=== PATIENT | female | born 1945 | race Caucasian/White ===

== ENCOUNTER 2019-06-10 08:32 | Emergency (ER) | payer MEDICARE, SELFPAY ==
[2019-06-10 08:46] VITALS: BP 125/54; PULSE 73; RESP 20; TEMP 37.1; O2SAT 96
--- NOTE | 2019-06-10 09:10 | ED.EYEPROB ---
HPI - Eye Problem General Chief complaint: Eye Problems Stated complaint: left eye swollen and red Time Seen by Provider: 06/10/19 09:00 Source: patient, RN notes reviewed and old records reviewed Mode of arrival: ambulatory Limitations: no limitations History of Present Illness HPI Narrative: Patient presents today complaining of redness and swelling around her left eye x2 days. Reports symptoms are better today than they were yesterday. She does report some intermittent itching, but denies pain. Denies foreign body sensation, photophobia, or drainage. Patient has been applying a cold rag, but no other [id number] interventions. 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 She was told previously that she had cellulitis. Related Data Home Medications Medication Instructions Recorded Confirmed losartan 100 mg PO DAILY 02/24/19 06/10/19 rosuvastatin 10 mg PO DAILY 02/24/19 06/10/19 Allergies Allergy/AdvReac Type Severity Reaction Status Date / Time No Known Allergies Allergy Verified 02/24/19 08:28 Review of Systems Review of Systems: Narrative: CONSTITUTIONAL: Denies body aches, fever, chills, or sweats. EYES: Denies visual changes, redness, or discharge.Swelling and redness surrounding the left eye ENT: Denies rhinorrhea, congestion, sore throat, or otalgia. CARDIOVASCULAR: Denies chest pain, palpitations, or edema. RESPIRATORY: Denies cough or dyspnea. GASTROINTESTINAL: Denies abdominal pain, nausea, vomiting, or diarrhea. GENITOURINARY: Denies dysuria or hematuria. SKIN: Denies rash, itching, or wounds. MUSCULOSKELETAL: Denies back pain, joint pain, or myalgia. NEUROLOGIC: Denies headache, numbness, tingling, or weakness. PSYCH: Denies depression or anxiety. [facility] Past Medical History Medical History (Updated 06/10/19 @ 09:21 by Jovanna Archer, [facility], ) Hyperlipidemia Hypertension Surgical History Surgical History (Updated 02/25/19 @ 19:13 by Xiomara Mackenzie, [facility]) H/O cataract removal with insertion of prosthetic lens H/O: hysterectomy History of ear surgery Social History Social History (Updated 02/24/19 @ 08:58 by Xiomara Mackenzie NP) Smoking status: Never smoker Gender identity (if verbalized by the patient): Female Comments At time of signature, I have reviewed and agree with nursing past medical, surgical, social and family history unless otherwise noted. Please see nursing chart for further information. There is no relevant family history pertinent to the presenting complaint Exam Narrative: Exam Narrative: GENERAL: Well-appearing, well-nourished, and in no acute distress. HEAD: Normocephalic, atraumatic. EYES: EOMI. PERRL. No redness or drainage. Conjunctivae normal Bilaterally. Very mild edema and moderate dependent edema of the left upper and lower eyelids consistent with allergic reaction. No induration or abscess noted. ENT: Mucous membranes pink and moist. NECK: Normal AROM. Supple. No lymphadenopathy. CHEST: No respiratory distress. EXTREMITIES: Normal range of motion. No edema. SKIN: Warm, dry, no rash. Capillary refill normal. Normal skin turgor. NEURO: No focal deficits. Alert and oriented x3. Gait steady. PSYCH: Normal affect. No signs of depression or anxiety. Course Vital Signs Vital signs: Vital Signs Temperature 98.8 F 06/10/19 08:46 Pulse Rate 73 06/10/19 08:46 Respiratory Rate 20 06/10/19 08:46 Blood Pressure 125/54 L 06/10/19 08:46 Pulse Oximetry 96 06/10/19 08:46 Temperature 98.8 F 06/10/19 08:46 Pulse Rate 73 06/10/19 08:46 Respiratory Rate 20 06/10/19 08:46 Blood Pressure 125/54 L 06/10/19 08:46 Pulse Oximetry 96 06/10/19 08:46 Reviewed. Pt has been instructed to follow up with her PCP regarding her elevated blood pressure today. Procedures Other Pro
== END 2019-06-10 09:30 | disposition home or self-care (01) ==
PROVIDERS: Emergency Provider Nurse Practitioner; PCP Family Medicine
DX: L30.8 Other specified dermatitis (principal); E78.5 Hyperlipidemia, unspecified; I10 Essential (primary) hypertension
CPT/HCPCS: 65205; 99213; A9270; G0463

== ENCOUNTER 2020-07-31 08:59 | Emergency (ER) | payer MEDICARE, SELFPAY ==
[2020-07-31 09:08] VITALS: BP 126/63; PULSE 88; RESP 16; TEMP 37.3; O2SAT 99
--- NOTE | 2020-07-31 09:14 | ED.SKABFB ---
HPI - Skin/Abscess/Foreign Bdy General Chief complaint: Skin/Abscess/Foreign Body Stated complaint: Swelling, Peeling to left side of Face Time Seen by Provider: 07/31/20 09:09 Source: patient and RN notes reviewed History of Present Illness HPI narrative: Patient is a 74-year-old female who presents the urgent care with complaints of a sore to the left side of her face. Patient states is been there for years and started as just a small brown dot. Patient states she has had no issues with it in the past however over the last couple days it has opened and started to drain with surrounding swelling and pain. Patient states that she has been putting a antibiotic ointment on it for the last couple days. Denies of any fever, chills, nausea, vomiting. No other acute complaints. No acute distress noted. Patient aware of the plan of care. Some parts of this dictation were generated by voice recognition software and may contain typographical and/or grammatical inaccuracies. Related Data Home Medications Medication Instructions Recorded Confirmed losartan 100 mg PO DAILY 02/24/19 07/31/20 rosuvastatin 10 mg PO DAILY 02/24/19 07/31/20 omeprazole 20 mg PO DAILY 07/31/20 07/31/20 Allergies Allergy/AdvReac Type Severity Reaction Status Date / Time No Known Allergies Allergy Verified 07/31/20 09:05 Review of Systems Review of Systems: Narrative: CONSTITUTIONAL: Denies fever, chills, or sweats. EYES: Denies visual changes, redness, or discharge. ENT: Denies rhinorrhea, congestion, sore throat, or otalgia. CARDIOVASCULAR: Denies chest pain, palpitations, or edema. RESPIRATORY: Denies cough or dyspnea. GASTROINTESTINAL: Denies abdominal pain, nausea, vomiting, or diarrhea. GENITOURINARY: Denies dysuria or hematuria. SKIN: Reports of a sore to the left side of the face MUSCULOSKELETAL: Denies back pain, joint pain, or myalgia. NEUROLOGIC: Denies headache, numbness, or weakness. All other systems reviewed are negative, except as documented in HPI. [facility] Past Medical History Medical History (Updated 07/31/20 @ 09:18 by ALBINO Cronin) Hyperlipidemia Hypertension Surgical History Surgical History (Updated 02/25/19 @ 19:13 by Xiomara Mackenzie NP) H/O cataract removal with insertion of prosthetic lens H/O: hysterectomy History of ear surgery Social History Social History (Updated 02/24/19 @ 08:58 by Xiomara Mackenzie NP) Smoking status: Never smoker Gender identity (if verbalized by the patient): Female Comments At the time of my signature, I reviewed and agree with the nursing past medical, surgical, social, and family history. There is no relevant family history pertinent to the patient complaint. Exam Narrative: Exam Narrative: GENERAL: This is a well-nourished, well-developed patient, in no apparent distress. HEAD: normocephalic, atraumatic. EYES: PERRL. Sclera clear/white. Vision is grossly intact. EARS: External ears normal NOSE: External nose normal with no obvious nasal discharge, nares without redness, no rhinorrhea. THROAT: Mucous membranes moist NECK: Neck supple CARDIOVASCULAR: Regular rate and rhythm without murmurs, gallops, or rubs. RESPIRATORY: Clear to auscultation. Breath sounds equal bilaterally. No wheezes, rales, or rhonchi. SKIN: 3 x 4 cm area of swelling and erythema and mild edema surrounding a 0.25 superficial open sore to the left upper cheek with mild tenderness and scant drainage NEURO: awake, alert, and oriented to person, place and time. There were no obvious focal neurologic abnormalities. EXTREMITIES: No clubbing, cyanosis, or edema. Course Vital Signs Vital signs: Vital Signs Temperature 99.2 F 07/31/20 09:08 Pulse Rate 88 07/31/20 09:08 Respiratory Rate 16 07/31/20 09:08 Blood Pressure 126/63 07/31/20 09:08 Pulse Oximetry 99 07/31/20 09:08 Temperature 99.2 F 07/31/20 09:08 Pulse Rate 88 07/31/20 09:08 Respiratory Rate 16 07/31/20
== END 2020-07-31 09:24 | disposition home or self-care (01) ==
PROVIDERS: Emergency Provider Nurse Practitioner Family; PCP Internal Medicine
DX: L01.00 Impetigo, unspecified (principal); E78.5 Hyperlipidemia, unspecified; I10 Essential (primary) hypertension; E78.00 Pure hypercholesterolemia, unspecified; K21.9 Gastro-esophageal reflux disease without esophagitis
CPT/HCPCS: 99213; G0463

== ENCOUNTER 2020-09-09 08:19 | Emergency (ER) | payer MEDICARE, SELFPAY ==
[2020-09-09 08:25] VITALS: BP 144/105; PULSE 86; RESP 16; TEMP 37.1; O2SAT 99
[2020-09-09 08:33] VITALS: BP 144/105; PULSE 86; RESP 16; TEMP 37.1; O2SAT 99
--- NOTE | 2020-09-09 08:41 | ED.SKABFB ---
HPI - Skin/Abscess/Foreign Bdy General Chief complaint: Skin/Abscess/Foreign Body Stated complaint: spot on face Source: patient and RN notes reviewed Limitations: no limitations History of Present Illness HPI narrative: The patient, who is on several routine meds, presents with recurrent skin eruption. Patient states she was treated for facial impetigo over a month ago with doxycycline and Bactroban. She had improvement of a left maxillary lesion; she now has almost a week history of infranasal skin eruption preceded by a similar eruption on her right cheek. No fever, spontaneous discharge, streaking, induration/abscess. Symptoms are mild unrelieved with topical creams. Related Data Home Medications Medication Instructions Recorded Confirmed losartan 100 mg PO DAILY 02/24/19 09/09/20 rosuvastatin 10 mg PO DAILY 02/24/19 09/09/20 omeprazole 20 mg PO DAILY 07/31/20 09/09/20 Allergies Allergy/AdvReac Type Severity Reaction Status Date / Time No Known Allergies Allergy Verified 09/09/20 08:33 Review of Systems Review of Systems: Narrative: General/Constitutional: No weight loss,fever Eyes: N0: Redness,discharge Ears/Nose/Throat: No: Epistaxis,ear discharge Respiratory: Denies: Hemoptysis Gastrointestinal: No Vomiting, Bleeding-rectal Skin: No Lumps, REPORTS eruption Neurologic: No Focal Weakness,Sz Hematologic: Denies: Petechiae/Purpura Psychiatric: No: Suicida ideationl All Other Systems: Reviewed and Negative PMFSH Past Medical History Medical History (Updated 09/09/20 @ 08:47 by Mich Pierson MD) Hyperlipidemia Hypertension Surgical History Surgical History (Updated 02/25/19 @ 19:13 by Xiomara Mackenzie NP) H/O cataract removal with insertion of prosthetic lens H/O: hysterectomy History of ear surgery Social History Social History (Updated 02/24/19 @ 08:58 by Xiomara Mackenzie NP) Smoking status: Never smoker Gender identity (if verbalized by the patient): Female Comments At time of signature, agree with nursing past medical, surgical, social and family history. There is no relevant family history pertinent to the presenting complaint Exam Narrative: Exam Narrative: General Appearance: Well nourished Head: Normocephalic Eye: PERRLA, Conjunctiva clear Ear: External ear normal Nose: Normal nose, Nare clear Mouth/Throat: Normal appearing Neck Exam: Supple Respiratory: Airway patent, No respiratory distress Musculoskeletal: Moves all extremities, Non tender Skin: Warm, Dry ; impetiginous eruption below nose and right cheek/maxilla, no abscess/fluctuance/induration/streaking Neurological: A&O x3 Psychiatric: Normal mood, Normal affect Course Vital Signs Vital signs: Vital Signs Temperature 98.8 F 09/09/20 08:25 Pulse Rate 86 09/09/20 08:25 Respiratory Rate 16 09/09/20 08:25 Blood Pressure 144/105 H 09/09/20 08:25 Pulse Oximetry 99 09/09/20 08:25 Temperature 98.8 F 09/09/20 08:33 Pulse Rate 86 09/09/20 08:33 Respiratory Rate 16 09/09/20 08:33 Blood Pressure 144/105 H 09/09/20 08:33 Pulse Oximetry 99 09/09/20 08:33 Discharge Plan Discharge Clinical Impression: Folliculitis Patient Disposition: Home, Self-Care Condition: Stable Instructions: Antibiotic Form, Folliculitis (ED) Additional Instructions: Take clindamycin with food, probiotics or antacid; stop if diarrhea occurs Keeping photo log of area Prescriptions: New clindamycin HCl 300 mg capsule 300 mg PO TID Qty: 21 RF: 0 mupirocin 2 % ointment 1 applic TOPICAL TID Qty: 30 RF: 0 No Action losartan 100 mg Tablet 100 mg PO DAILY RF: 0 rosuvastatin 10 mg Tablet 10 mg PO DAILY RF: 0 omeprazole 20 mg capsule,delayed release(DR/EC) 20 mg PO DAILY RF: 0 Follow-up/Referrals: Sudhir,Jamarcus Miller MD [Primary Care Provider] -
== END 2020-09-09 09:02 | disposition home or self-care (01) ==
PROVIDERS: Emergency Provider Emergency Medicine; PCP Internal Medicine
DX: L73.9 Follicular disorder, unspecified (principal); E78.5 Hyperlipidemia, unspecified; I10 Essential (primary) hypertension; Z98.49 Cataract extraction status, unspecified eye; Z96.1 Presence of intraocular lens
CPT/HCPCS: 99213; G0463

== ENCOUNTER 2020-09-24 10:04 | Emergency (ER) | payer MEDICARE, SELFPAY ==
[2020-09-24 10:10] VITALS: BP 122/54; PULSE 69; RESP 18; TEMP 37; O2SAT 98
--- NOTE | 2020-09-24 11:10 | ED.SKABFB ---
HPI - Skin/Abscess/Foreign Bdy General Chief complaint: Skin/Abscess/Foreign Body Stated complaint: face broke out Source: patient and RN notes reviewed Mode of arrival: ambulatory Limitations: no limitations History of Present Illness HPI narrative: 74-year-old female who presents to [facility] with complaints of rash now above her lip, she was here previously for rash to the same area and was treated with clindamycin oral antibiotic and topical Bactroban ointment which cleared up rash. Patient states that rash showed up yesterday above her lip is crusty with some yellowish drainage and is itchy, has applied some of the Bactroban ointment to rash. Patient denies anyone else in family having rash or any other areas on body of this rash.Patient denies any fevers, chills, or sweats. MD complaint: rash Related Data Home Medications Medication Instructions Recorded Confirmed losartan 100 mg PO DAILY 02/24/19 09/24/20 rosuvastatin 10 mg PO DAILY 02/24/19 09/24/20 omeprazole 20 mg PO DAILY 07/31/20 09/24/20 Allergies Allergy/AdvReac Type Severity Reaction Status Date / Time No Known Allergies Allergy Verified 09/24/20 10:59 Review of Systems Review of Systems: CONSTITUTIONAL: Denies fever, chills, or sweats. EYES: Denies visual changes, redness, or discharge. ENT: Denies rhinorrhea, congestion, sore throat, or otalgia. CARDIOVASCULAR: Denies chest pain, palpitations, or edema. RESPIRATORY: Denies cough or dyspnea. GASTROINTESTINAL: Denies abdominal pain, nausea, vomiting, or diarrhea. GENITOURINARY: Denies dysuria or hematuria. SKIN:Positive for rash above lip with crusting appearance and mild itch. MUSCULOSKELETAL: Denies back pain, joint pain, or myalgia. NEUROLOGIC: Denies headache, numbness, or weakness. PSYCHIATRIC: Denies anxiety or depression. All systems reviewed & are unremarkable except as noted in HPI and below [facility] Past Medical History Medical History (Updated 09/28/20 @ 14:49 by Xiomara Mackenzie NP) GERD (gastroesophageal reflux disease) Hyperlipidemia Hypertension Surgical History Surgical History (Updated 09/28/20 @ 14:46 by Xiomara Mackenzie NP) H/O cataract removal with insertion of prosthetic lens H/O: hysterectomy History of ear surgery Hx of tubal ligation Family History Family History (Updated 09/24/20 @ 11:24 by Xiomara Mackenzie NP) Sibling Cancer of lung Other Breast cancer Hypertension Social History Social History (Updated 09/28/20 @ 14:46 by Xiomara Mackenzie NP) Smoking status: Former smoker Tobacco type: cigarettes Additional smoking assessment comments: quit 30 years ago Alcohol intake: never Substance use: never Living arrangements: with family Occupation/Education: retired Gender identity (if verbalized by the patient): Female Comments At time of signature, agree with nursing past medical, surgical, social and family history. There is no relevant family history pertinent to the presenting complaint Exam Narrative: GENERAL: Well-appearing, well-nourished, and in no acute distress. HEAD: Normocephalic, atraumatic. EYES: PERRLA and EOMI. ENT: Nares clear, no rhinorrhea or epistaxis. Mucous membranes moist. NECK: Supple. No lymphadenopathy CHEST: Clear to auscultation. No respiratory distress. SaO2 98% on room air HEART: Regular rate and rhythm. No murmur heard. Normal peripheral pulses. ABDOMEN: Soft, nontender, nondistended, normal active bowel sounds. EXTREMITIES: Normal range of motion. No edema. SKIN: Warm, dry, red with crusting rash above lip, yellowish discharge noted, stated some itch to area, denies any other sites of rash or anyone else in family with similar rash. NEURO: No focal deficits. Alert and oriented x3. Course Vital Signs Vital signs: Vital Signs Temperature 37.0 C 09/24/20 10:10 Pulse Rate 69 09/24/20 10:10 Respiratory Rate 18 09/24/20 10:10 Blood Pressure 122/54 L 09/24/20 10:10 Pulse Oximetry 98
== END 2020-09-24 11:30 | disposition home or self-care (01) ==
PROVIDERS: Emergency Provider Registered Nurse; PCP Internal Medicine
DX: L01.00 Impetigo, unspecified (principal); K21.9 Gastro-esophageal reflux disease without esophagitis; E78.5 Hyperlipidemia, unspecified; I10 Essential (primary) hypertension; Z87.891 Personal history of nicotine dependence
CPT/HCPCS: 99213; G0463

== ENCOUNTER 2020-10-18 09:13 | Emergency (ER) | payer MEDICARE, SELFPAY ==
--- NOTE | 2020-10-18 09:19 | ED.SKABFB ---
HPI - Skin/Abscess/Foreign Bdy General Chief complaint: Skin/Abscess/Foreign Body Stated complaint: Rash on Chest and Neck Time Seen by Provider: 10/18/20 09:19 Source: patient and RN notes reviewed History of Present Illness HPI narrative: Patient is a 74-year-old female who presents the urgent care with complaints of an itchy inflamed rash to the neck and chest. Patient states that she started noticing it after having sticky pads placed on her chest at the hospital for an outpatient test . Patient states that it cleared up slightly and she was seen a automotive title clerk for a facial rash. Patient states that her automotive title clerk placed her on doxycycline and clindamycin cream which have not improved the rash to the chest. Patient states she has been taking Benadryl with mild improvement. No other acute complaints. No acute distress noted. Patient read the plan of care. Some parts of this dictation were generated by voice recognition software and may contain typographical and/or grammatical inaccuracies. Related Data Home Medications Medication Instructions Recorded Confirmed losartan 100 mg PO DAILY 02/24/19 10/18/20 rosuvastatin 10 mg PO DAILY 02/24/19 10/18/20 omeprazole 20 mg PO DAILY 07/31/20 10/18/20 Allergies Allergy/AdvReac Type Severity Reaction Status Date / Time No Known Allergies Allergy Verified 10/18/20 09:31 Review of Systems Review of Systems: CONSTITUTIONAL: Denies fever, chills, or sweats. EYES: Denies visual changes, redness, or discharge. ENT: Denies rhinorrhea, congestion, sore throat, or otalgia. CARDIOVASCULAR: Denies chest pain, palpitations, or edema. RESPIRATORY: Denies cough or dyspnea. GASTROINTESTINAL: Denies abdominal pain, nausea, vomiting, or diarrhea. GENITOURINARY: Denies dysuria or hematuria. SKIN: Reports of a rash to the chest and neck MUSCULOSKELETAL: Denies back pain, joint pain, or myalgia. NEUROLOGIC: Denies headache, numbness, or weakness. All other systems reviewed are negative, except as documented in HPI. [facility] Past Medical History Medical History (Updated 10/18/20 @ 09:30 by ALBINO Cronin) GERD (gastroesophageal reflux disease) Hyperlipidemia Hypertension Surgical History Surgical History (Updated 09/28/20 @ 14:46 by Xiomara Mackenzie NP) H/O cataract removal with insertion of prosthetic lens H/O: hysterectomy History of ear surgery Hx of tubal ligation Family History Family History (Updated 09/24/20 @ 11:24 by Xiomara Mackenzie NP) Sibling Cancer of lung Other Breast cancer Hypertension Social History Social History (Updated 09/28/20 @ 14:46 by Xiomara Mackenzie NP) Smoking status: Former smoker Tobacco type: cigarettes Additional smoking assessment comments: quit 30 years ago Alcohol intake: never Substance use: never Gender identity (if verbalized by the patient): Female Comments At the time of my signature, I reviewed and agree with the nursing past medical, surgical, social, and family history. There is no relevant family history pertinent to the patient complaint. Exam Narrative: GENERAL: This is a well-nourished, well-developed patient, in no apparent distress. HEAD: normocephalic, atraumatic. EYES: PERRL. Sclera clear/white. Vision is grossly intact. EARS: External ears normal NOSE: External nose normal with no obvious nasal discharge, nares without redness, no rhinorrhea. THROAT: Mucous membranes moist NECK: Neck supple CARDIOVASCULAR: Regular rate and rhythm without murmurs, gallops, or rubs. RESPIRATORY: Clear to auscultation. Breath sounds equal bilaterally. No wheezes, rales, or rhonchi. SKIN: Pruritic raised erythemic dermatitis to the chest and neck NEURO: awake, alert, and oriented to person, place and time. There were no obvious focal neurologic abnormalities. EXTREMITIES: No clubbing, cyanosis, or edema. Course Vital Signs Vital signs: Vital Signs Temperature 99.5 F 10/18/20 09:20 Pulse R
[2020-10-18 09:20] VITALS: BP 152/69; PULSE 81; RESP 20; TEMP 37.5; O2SAT 98
== END 2020-10-18 09:32 | disposition home or self-care (01) ==
PROVIDERS: Emergency Provider Nurse Practitioner Family; PCP Internal Medicine
DX: L25.9 Unspecified contact dermatitis, unspecified cause (principal); E78.5 Hyperlipidemia, unspecified; I10 Essential (primary) hypertension; Z87.891 Personal history of nicotine dependence
CPT/HCPCS: 99213; G0463

== ENCOUNTER 2021-07-06 08:18 | Emergency (ER) | payer MEDICARE, SELFPAY ==
[2021-07-06 08:24] VITALS: BP 126/51; PULSE 70; RESP 18; TEMP 36.6; O2SAT 98
--- NOTE | 2021-07-06 08:27 | ED.SKABFB ---
HPI - Skin/Abscess/Foreign Bdy General Chief complaint: Skin/Abscess/Foreign Body Stated complaint: rash on chest and arms Time Seen by Provider: 07/06/21 08:38 Source: patient and RN notes reviewed Mode of arrival: ambulatory Limitations: no limitations History of Present Illness HPI narrative: 75-year-old female presents with concern for a rash. She reports a rash on her chest that has been there for approximately 3 days, reports last night she noticed the rash moved to her upper arms. She denies any exposure to plants, poison lewis. She reports she did start using Dial soap recently which she normally does not use. She denies swollen lips, swollen tongue, trouble breathing. Reports the rash is mildly itchy, itched worse last night when she put Neosporin on it. She reports history of similar rash in the past. MD complaint: rash Related Data Home Medications Medication Instructions Recorded Confirmed losartan 100 mg tablet 100 mg PO DAILY 02/24/19 07/06/21 rosuvastatin 10 mg tablet 10 mg PO DAILY 02/24/19 07/06/21 omeprazole 20 mg capsule,delayed 20 mg PO DAILY 07/31/20 07/06/21 release Allergies Allergy/AdvReac Type Severity Reaction Status Date / Time No Known Allergies Allergy Verified 07/06/21 08:30 Review of Systems Review of Systems: CONSTITUTIONAL: Denies malaise, chills, sweats, or fever. EYES: Denies redness, or discharge. ENT: Denies rhinorrhea, congestion, swollen lips, swollen tongue CARDIOVASCULAR: Denies chest pain, palpitations, or edema. RESPIRATORY: Denies cough or dyspnea. GASTROINTESTINAL: Denies abdominal pain, nausea, vomiting SKIN: Reports rash on her chest and bilateral inner arms MUSCULOSKELETAL: Denies joint painor myalgia. NEUROLOGIC: Denies headache. All systems reviewed & are unremarkable except as noted in HPI and below PMFSH Past Medical History Medical History (Updated 07/06/21 @ 08:43 by Bridget Bates NP) GERD (gastroesophageal reflux disease) Hyperlipidemia Hypertension Surgical History Surgical History (Updated 09/28/20 @ 14:46 by Xiomara Mackenzie NP) H/O cataract removal with insertion of prosthetic lens H/O: hysterectomy History of ear surgery Hx of tubal ligation Family History Family History (Updated 09/24/20 @ 11:24 by Xiomara Mackenzie NP) Sibling Cancer of lung Other Breast cancer Hypertension Social History Social History (Updated 09/28/20 @ 14:46 by Xiomara Mackenzie NP) Smoking status: Former smoker Tobacco type: cigarettes Additional smoking assessment comments: quit 30 years ago Alcohol intake: never Substance use: never Gender identity (if verbalized by the patient): Female Comments At time of signature, agree with nursing past medical, surgical, social and family history. There is no relevant family history pertinent to the presenting complaint Exam Narrative: GENERAL: Well-appearing, well-nourished, and in no acute distress. HEAD: Normocephalic, atraumatic. EYES: PERRLA, conjunctivae clear, and EOMI. ENT: Mucous membranes moist. Oropharynx without edema, erythema or lesions. NECK: Supple. No lymphadenopathy CHEST: Clear to auscultation. No respiratory distress. HEART: Regular rate and rhythm. SKIN: Warm, dry. Patch of erythematous papules, some confluent, with satellite lesions noted to the chest, small patch of erythematous papules noted to bilateral inner arms NEURO: Alert and oriented x3. PSYCH: Normal mood and affect Course Course Emergency Course: Patient is aware of diagnosis, understands and agrees to treatment plan. Anticipatory guidance given. Patient agrees to follow-up as directed and is aware of reasons to seek care at the emergency department. Portions of this record may have been created with voice recognition software Level of Care: Express Care Visit Vital Signs Vital signs: Reviewed. MDM - Skin/Abscess/Foreign Bdy MDM Narrative Medical decision making narrative: Does not payton
== END 2021-07-06 08:57 | disposition home or self-care (01) ==
PROVIDERS: Emergency Provider Nurse Practitioner; PCP Physician Assistant Medical
DX: L24.0 Irritant contact dermatitis due to detergents (principal); Z87.891 Personal history of nicotine dependence; K21.9 Gastro-esophageal reflux disease without esophagitis; E78.5 Hyperlipidemia, unspecified; I10 Essential (primary) hypertension; Z98.49 Cataract extraction status, unspecified eye; Z96.1 Presence of intraocular lens
CPT/HCPCS: 99213; G0463

== ENCOUNTER 2021-09-05 08:22 | Emergency (ER) | payer MEDICARE, SELFPAY ==
[2021-09-05 08:40] VITALS: BP 112/68; PULSE 86; RESP 20; TEMP 36.7; O2SAT 99
--- NOTE | 2021-09-05 09:49 | ED.GENADULT ---
HPI - General Adult General Chief complaint: Eye Problems Stated complaint: Left eye swollen, itchy Source: patient Mode of arrival: ambulatory Limitations: no limitations History of Present Illness HPI narrative: Patient presents for evaluation of pruritus and redness to the left eyelid since yesterday. She indicates she had similar symptoms in the past and was given a Medrol Dosepak which helped. She denies any diplopia, blurred vision, black spots or other visual disturbance. She wears glasses for reading purposes. No drainage from the eye. She also cut her left leg while shaving about 1.5 weeks ago. She has redness surrounding the abrasion. She applied some Neosporin. She is not diabetic. No drainage from the area. No fever, chills, nausea, vomiting. No additional complaints or concerns Related Data Home Medications Medication Instructions Recorded Confirmed omeprazole 20 mg capsule,delayed 20 mg PO DAILY 07/31/20 09/05/21 release levothyroxine 50 mcg tablet 50 mcg PO DAILY 09/05/21 09/05/21 losartan 100 1 tablet PO DAILY 09/05/21 09/05/21 mg-hydrochlorothiazide 12.5 mg tablet Allergies Allergy/AdvReac Type Severity Reaction Status Date / Time No Known Allergies Allergy Verified 09/05/21 09:21 Review of Systems Review of Systems: CONSTITUTIONAL: Denies fever, chills, or sweats. EYES: Denies visual changes, redness, or discharge. ENT: Denies rhinorrhea, congestion, sore throat, or otalgia. CARDIOVASCULAR: Denies chest pain, palpitations, or edema. RESPIRATORY: Denies cough or dyspnea. GASTROINTESTINAL: Denies abdominal pain, nausea, vomiting, or diarrhea. GENITOURINARY: Denies dysuria or hematuria. SKIN: Reports redness to left upper and lower eyelids. Reports itching to left eyelids. Reports redness to left lateral leg MUSCULOSKELETAL: Denies back pain, joint pain, or myalgia. NEUROLOGIC: Denies headache, numbness, dizziness, or weakness. PSYCHIATRIC: Denies anxiety or depression. [facility] Past Medical History Medical History GERD (gastroesophageal reflux disease) Hyperlipidemia Hypertension Hypothyroidism Surgical History Surgical History H/O cataract removal with insertion of prosthetic lens H/O: hysterectomy History of ear surgery Hx of tubal ligation Family History Family History Sibling Cancer of lung Other Breast cancer Hypertension Social History Social History Smoking status: Former smoker Tobacco type: cigarettes Additional smoking assessment comments: quit 30 years ago Alcohol intake: never Substance use: never Gender identity (if verbalized by the patient): Female Spiritual care concerns: No Exam Narrative: GENERAL: Well-appearing, well-nourished, and in no acute distress. HEAD: Normocephalic, atraumatic. EYES: PERRLA and EOMI. No fluorescein uptake noted when evaluated with Davis lamp and fluorescein stain ENT: Nares clear, no rhinorrhea or epistaxis. Mucous membranes moist. Oropharynx without tonsillar hypertrophy exudate or other lesions. Bilateral TMs pearly holguin nonbulging NECK: Supple. No adenopathy or masses. No carotid bruits or JVD CHEST: Clear to auscultation. No respiratory distress. No wheezes rales or rhonchi HEART: Regular rate and rhythm. No murmur heard. Normal peripheral pulses. ABDOMEN: Soft, nontender, nondistended, normal active bowel sounds. EXTREMITIES: Normal range of motion. No edema. SKIN: There is mild erythema to the left upper and lower eyelids. There is a 5 x 2 cm abrasion to the lateral aspect of the left lower leg with 11 x 9 cm surrounding area of erythema. There is some pinpoint areas of erythema surrounding this area consistent with folliculitis. NEURO: No focal deficits. Al
== END 2021-09-05 09:50 | disposition home or self-care (01) ==
PROVIDERS: Emergency Provider Nurse Practitioner; PCP Physician Assistant Medical
DX: L29.9 Pruritus, unspecified (principal); L53.9 Erythematous condition, unspecified; T78.40XA Allergy, unspecified, initial encounter; L03.116 Cellulitis of left lower limb; Z87.891 Personal history of nicotine dependence; K21.9 Gastro-esophageal reflux disease without esophagitis; E78.5 Hyperlipidemia, unspecified; I10 Essential (primary) hypertension; E03.9 Hypothyroidism, unspecified; Z98.49 Cataract extraction status, unspecified eye; Z96.1 Presence of intraocular lens
CPT/HCPCS: 99213; A9270; G0463